=== PATIENT | female | born 1925 | race Caucasian/White ===

== ENCOUNTER → 2016-11-28 | Outpatient (CLI) | payer MEDICARE ==
[~2016-11-28] MED LIST: AMIODARONE; AMOXICILLIN PO; ASPIRINEC; ASPIRINEC PO; ATROVENT 0.03%30 ML; ATROVENT 0.03%30 ML IH; ATROVENT NASAL15 ML; BENZONATATE PO; BONIVA PO; BONIVA150 MG PO; CETIRIZINE HCL10 MG PO; CETIRIZINE PO; CLARITIN10 M3 PO; CORDARONE200 M1 PO; COUMADIN; DARVOCET-N 1001 TAB PO; DOXYCYCLINE PO; FOSAMAX; IPRATROPIUM; IRON PO; KEFLEX250 M1 PO; KEFLEX500 MG PO; KETOPROFEN PO; LASIX20 MG PO; LOC; NEURONTIN100 MG PO; NORCO 5/325 TAB1 TAB PO; OXYCODON-ACETA1 EAC2 PO; PACERONE PO; POTASSIUM CHLO10 ME1 PO; POTASSIUM PO; SENNA PO; SENNA S TABLET1 TAB PO; SENNA-S TABLET1 EACH PO; SENOKOT PO; SINGULAIR; SINGULAIR PO; VICODIN 5/500 T1 TAB PO; VITAMIN D 4001 UDTAB PO; VITAMIN D PO; VITAMIN D-32000 UNI1 PO; VITAMIN D22000 UNIT PO; XARELTO15 MG; XARELTO15 MG PO; ZYRTEC; ZYRTEC PO; ZYRTEC10 M2 PO
[2016-11-28 09:26] LABS: EOSINOPHIL# 0.1 X10e3 (0-0.7); EOSINOPHIL% 3.2 % (0.0-7.0); HEMATOCRIT 33.1 % (35.0-45.0); HEMOGLOBIN 10.9 gm/dL (12.0-16.0); LYMPHOCYTE# 1.1 X10e3 (1.0-3.5); LYMPHOCYTE% 31.9 % (17.0-45.0); MEAN CELL VOLUME 95.1 FL (83-96); MEAN CORPUSCULAR HEMOGLOBIN 31.4 PG (28-34); MEAN PLATELET VOLUME 8.7 FL (6.5-11.5); MONOCYTE# 0.4 X10e3 (0-1.0); MONOCYTE% 11.3 % (3.0-12.0); NEUTROPHIL# 1.8 X10e3 (1.5-7.1); NEUTROPHIL% 52.6 % (40-75); PLATELET COUNT 117 X10e3 (140-420); RED BLOOD COUNT 3.48 X10e (3.90-5.30); RED CELL DISTRIBUTION WIDTH 13.9 % (11.0-15.5); WHITE BLOOD COUNT 3.4 X10e3 (4.0-10.5)
[2016-11-28 09:33] LABS: DIFF IND NO
[2016-11-28 09:46] LABS: URINE APPEARANCE CLEAR; URINE BILIRUBIN NEG (NEG); URINE BLOOD NEG (NEG); URINE COLOR YELLOW; URINE GLUCOSE NEG (NORM); URINE KETONE NEG (NEG); URINE LEUKOCYTE ESTERASE NEG (NEG); URINE NITRATE NEG (NEG); URINE PROTEIN NEG (NEG); URINE SPECIFIC GRAVITY <=1.005 (1.003-1.035); URINE UROBILINOGEN 0.2 MG/DL (NORM)
[2016-11-28 09:47] LABS: MICRO INDICATED? NO
[2016-11-28 09:58] LABS: BUN/CREATININE RATIO 13.84; CALCIUM SERUM 9.4 mg/dL (8.4-10.2); CREATININE SERUM 1.3 mg/dL (0.6-1.4); PHOSPHOROUS 3.7 mg/dL (2.5-4.6); POTASSIUM 3.9 mmol/L (3.5-5.1)
[2016-12-01 17:26] LABS: CALCIUM (PTHINTACT) 9.1 mg/dL (8.6-10.4)
== END | disposition home or self-care (01) ==
LOC: SLAB 09:11
PROVIDERS: Internal Medicine Nephrology
DX: N18.3 Chronic kidney disease, stage 3 (moderate) (principal); M81.0 Age-related osteoporosis without current pathological fracture
CPT/HCPCS: 36415; 80048; 81003; 82306; 82310; 83970; 84100; 85025

== ENCOUNTER → 2016-12-01 | Outpatient (CLI) | payer MEDICARE ==
--- NOTE | ~2016-12-01 | US85 ---
[facility] A Service [facility] RADIOLOGY TEXT RESULTS PATIENT: BEST GARCIA LOCATION: SNIV : [birth year] UNIT #: [id number] AGE: [address]: Sunil Mario MD SEX: F ORDER DR: [id number] [address] [address] [id number] O MR#: [id number] Acc #: [id number] NAME: BEST GARCIA : 1925 SEX: F STUDY DATE/TIME: 12/01/2016 9:40 UNIT: [facility] ROOM: STUDY DESCRIPTION: [facility] Attending Physician: Sunil Mario M.D. Referring Physician: Sunil Mario M.D. Ordering Physician: Sunil Mario M.D. Primary Care Physician: Leo Cody M.D. MEDICAL IMAGING REPORT This report is preliminary unless electronic signature is present. EXAM Left lower extremity Doppler venous ultrasound. DATE 12/01/2016 HISTORY Left lower extremity swelling for 2 weeks. COMPARISON None TECHNIQUE Venous ultrasound examination of the left lower extremity was performed using grayscale, spectral Doppler and color flow Doppler imaging. FINDINGS The examination is negative. There is no evidence of left lower extremity deep venous thrombus from the groin to the lower calf. Visualized greater saphenous vein is also patent. IMPRESSION Negative examination. No evidence of left lower extremity deep venous thrombosis. Dictated by... Nathalia Diaz M.D. THIS IS AN ELECTRONICALLY VERIFIED REPORT Nathalia Diaz M.D. at 12/02/2016 10:06 PM [facility] A Service [facility] RADIOLOGY TEXT RESULTS PATIENT: BEST GARCIA LOCATION: SN[facility] : [birth year] UNIT #: [id number] AGE: [address]: Sunil Mario MD SEX: F ORDER DR: Jeet TD: 12/01/2016 14:57 JOB #: [id number] MEDICAL IMAGING REPORT
== END | disposition home or self-care (01) ==
LOC: SNIV 09:01
DX: M79.89 Other specified soft tissue disorders (principal)
CPT/HCPCS: 93971

== ENCOUNTER 2017-05-12 15:52 | Emergency (ER) | payer MEDICARE ==
[~2017-05-12 15:52] MED LIST changes: -BONIVA PO; -CETIRIZINE PO; -IPRATROPIUM; -IRON PO; -POTASSIUM PO; -SENOKOT PO
[2017-05-12] MEDS ORDERED: SINGULAIR PO (15:57)
[2017-05-12] MEDS ORDERED: CETIRIZINE PO (15:57)
[2017-05-12] MEDS ORDERED: BONIVA PO (15:57)
[2017-05-12] MEDS ORDERED: SENOKOT PO (15:58)
[2017-05-12] MEDS ORDERED: IPRATROPIUM (15:58)
[2017-05-12] MEDS ORDERED: VITAMIN D PO (15:58)
[2017-05-12] MEDS ORDERED: POTASSIUM PO (15:59)
[2017-05-12] MEDS ORDERED: IRON PO (15:59)
[2017-05-12 17:42] LABS: BASOPHIL% 0.8 % (0-2.5); EOSINOPHIL# 0.1 X10e3 (0-0.7); EOSINOPHIL% 2.6 % (0.0-7.0); HEMATOCRIT 28.5 % (35.0-45.0); HEMOGLOBIN 9.8 gm/dL (12.0-16.0); LYMPHOCYTE% 26.9 % (17.0-45.0); MEAN CELL VOLUME 93.1 FL (83-96); MEAN CORPUSCULAR HGB CONC 34.4 g/dL (30-36); MONOCYTE# 0.4 X10e3 (0-1.0); MONOCYTE% 10.9 % (3.0-12.0); NEUTROPHIL# 2.2 X10e3 (1.5-7.1); NEUTROPHIL% 58.8 % (40-75); PLATELET COUNT 124 X10e3 (140-420); RED BLOOD COUNT 3.07 X10e (3.90-5.30); RED CELL DISTRIBUTION WIDTH 14.9 % (11.0-15.5); WHITE BLOOD COUNT 3.8 X10e3 (4.0-10.5)
[2017-05-12 17:44] LABS: DIFF IND NO
[2017-05-12 18:09] LABS: BUN/CREATININE RATIO 13.33; CALCIUM SERUM 8.8 mg/dL (8.4-10.2); CREATININE SERUM 1.2 mg/dL (0.6-1.4); POTASSIUM 4.8 mmol/L (3.5-5.1)
== END 2017-05-12 19:05 | disposition home or self-care (01) ==
LOC: SED 15:52
PROVIDERS: Nurse Practitioner Family
DX: L03.115 Cellulitis of right lower limb (principal); I48.91 Unspecified atrial fibrillation; Z88.0 Allergy status to penicillin; Z88.5 Allergy status to narcotic agent; Z88.8 Allergy status to other drugs, medicaments and biological substances; Z79.899 Other long term (current) drug therapy
CPT/HCPCS: 36415; 80048; 85025; 96365; 99283

== ENCOUNTER 2017-06-10 20:36 | Emergency (ER) | payer MEDICARE ==
[~2017-06-10] VITALS: Ht 165.1 cm; Wt 55.3 kg
--- NOTE | ~2017-06-10 | CR253 ---
[facility] A Service of [facility] RADIOLOGY TEXT RESULTS PATIENT: BEST GARCIA LOCATION: [facility] : [birth year] UNIT #: [id number] AGE: [address]: Carroll He MD SEX: F ORDER DR: [id number] [facility] [address] [place], [place] [address] [id number] MR#: [id number] Acc #: [id number] NAME: BEST GARCIA. : 1925 SEX: F STUDY DATE/TIME: 06/10/2017 22:01 UNIT: [facility] ROOM: STUDY DESCRIPTION: CR Tibia and Fibula 2 Views Rt Attending Physician: Carroll He M.D. Ordering Physician: Carroll He M.D. Primary Care Physician: Leo Cody M.D. MEDICAL IMAGING REPORT This report is preliminary unless electronic signature is present EXAM Right tibia and fibula, PA and lateral HISTORY Leg pain after fall 2 months ago. FINDINGS 2 views of the right tibia and fibula demonstrate satisfactory bone alignment. Generalized demineralization. Moderate diffuse arterial calcifications. No fracture or abnormal sclerosis or dislocation. Mild degenerative changes in the knee. IMPRESSION No acute findings. 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 Mild degenerative changes in the knee. Dictated by... Jasen Acevedo M.D. THIS IS AN ELECTRONICALLY VERIFIED REPORT Jasen Acevedo M.D. at 06/12/2017 3:25 PM DFL/liliya TD: 06/11/2017 23:31 JOB #: [id number] MEDICAL IMAGING REPORT Page 1 of 1 COPY
[~2017-06-10 20:36] MED LIST changes: +BONIVA PO; +CETIRIZINE PO; +IPRATROPIUM; +IRON PO; +POTASSIUM PO; +SENOKOT PO
[2017-06-10 22:11] LABS: BASOPHIL% 0.9 % (0-2.5); EOSINOPHIL# 0.1 X10e3 (0-0.7); EOSINOPHIL% 2.8 % (0.0-7.0); HEMATOCRIT 27.7 % (35.0-45.0); HEMOGLOBIN 9.5 gm/dL (12.0-16.0); LYMPHOCYTE# 1.2 X10e3 (1.0-3.5); LYMPHOCYTE% 33.7 % (17.0-45.0); MEAN CELL VOLUME 91.1 FL (83-96); MEAN CORPUSCULAR HEMOGLOBIN 31.3 PG (28-34); MEAN CORPUSCULAR HGB CONC 34.3 g/dL (30-36); MEAN PLATELET VOLUME 8.7 FL (6.5-11.5); MONOCYTE# 0.4 X10e3 (0-1.0); MONOCYTE% 11.5 % (3.0-12.0); NEUTROPHIL# 1.9 X10e3 (1.5-7.1); NEUTROPHIL% 51.1 % (40-75); PLATELET COUNT 170 X10e3 (140-420); RED BLOOD COUNT 3.04 X10e (3.90-5.30); WHITE BLOOD COUNT 3.7 X10e3 (4.0-10.5)
[2017-06-10 22:18] LABS: DIFF IND NO
[2017-06-10 22:50] LABS: BUN/CREATININE RATIO 15.71; CALCIUM SERUM 8.5 mg/dL (8.4-10.2); CREATININE SERUM 1.4 mg/dL (0.6-1.4); GLOM FILT RATE Estimated 33.2 mL/min (>60); POTASSIUM 4.5 mmol/L (3.5-5.1)
== END 2017-06-10 23:30 | disposition home or self-care (01) ==
LOC: CED 20:36
PROVIDERS: Emergency Medicine
DX: I87.2 Venous insufficiency (chronic) (peripheral) (principal); S81.801A Unspecified open wound, right lower leg, initial encounter; I48.91 Unspecified atrial fibrillation; Z79.899 Other long term (current) drug therapy; Z88.0 Allergy status to penicillin; Z88.1 Allergy status to other antibiotic agents; Z88.5 Allergy status to narcotic agent; Z88.8 Allergy status to other drugs, medicaments and biological substances; X58.XXXA Exposure to other specified factors, initial encounter
CPT/HCPCS: 36415; 73590; 80048; 85025; 99285